=== PATIENT | male | born 1975 | race Caucasian/White ===

== ENCOUNTER 2018-03-06 04:27 | Emergency (ER) | payer SELFPAY ==
[~2018-03-06] VITALS: Ht 180.3 cm; Wt 117.9 kg
[2018-03-06 04:27] VITALS: BP 154/100
--- NOTE | 2018-03-06 04:51 | PHYS DOC ---
Past Medical History Past Medical History: Anxiety Past Surgical History: No Surgical History Alcohol Use: Occasionally Drug Use: None Adult General Chief Complaint Chief Complaint: ANKLE PROBLEM HPI HPI 42-year-old male presents with a 9 day history of left ankle pain and swelling. 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 Patient reports his been trying to stay off of his feet, wearing a [id number] ankle brace, and icing area without significant improvement of symptoms. Denies other injury. Denies numbness or tingling. Review of Systems Review of Systems Constitutional: Denies fever or chills [] HENT: Denies nasal congestion or sore throat [] Respiratory: Denies cough or shortness of breath [] Cardiovascular: Denies chest pain or palpitations GI: Denies abdominal pain, nausea, vomiting, or diarrhea [] : Denies dysuria or hematuria [] Musculoskeletal: Reports left ankle pain and swelling Integument: Denies rash. Reports swelling to left ankle Neurologic: Denies headache, focal weakness or sensory changes Complete systems were reviewed and found to be within normal limits, except as documented in this note. Allergies Allergies Allergies Coded Allergies Type Severity Reaction Last Updated Verified No Known Drug Allergies 10/28/14 No Physical Exam Physical Exam Constitutional: Well developed, well nourished, no acute distress, non-toxic appearance. [] HENT: Normocephalic, atraumatic, Eyes: conjunctiva normal, no discharge. [] Neck: Normal range of motion, supple, Cardiovascular: Left DP and PT pulses +2, Capillary refill < 2 secs. Skin: Warm, dry, Extremities: Left medial malleolar tenderness on palpation, Ankle drawer test negative. NO laxity noted, sensation intact. CR < 2 sec. Neurologic: Alert and oriented X 3, no focal deficits noted. [] Psychologic: Affect normal, judgement normal, mood normal. [] Current Patient Data Vital Signs Vital Signs Date Time Temp Pulse Resp B/P (MAP) Pulse Ox O2 Delivery O2 Flow Rate FiO2 03/06/18 04:27 98.3 94 20 154/100 (118) 98 Room Air 98.3 EKG EKG [] Radiology/Procedures Radiology/Procedures Left ankle 3 view x-ray (preliminary interpretation by ED physician): No acute fracture or dislocation Course & Med Decision Making Course & Med Decision Making Pertinent Labs and Imaging studies reviewed. (See chart for details) Patient presents with a 9 day history of left ankle pain. Pain primarily to medial malleolus and ligaments. Ice applied. X-ray obtained without acute fracture or dislocation. Vicente wrap and air splint applied. Crutches provided. Patient stable for discharge with outpatient follow-up with PCP/ orthopedics. Orthopedic referral provided. Discussed findings and plan with patient, who acknowledges understanding and agreement. Dragon Disclaimer Dragon Disclaimer This electronic medical record was generated, in whole or in part, using a voice recognition dictation system. Departure Departure Impression: Primary Impression: Left ankle sprain Disposition: HOME, SELF-CARE Condition: STABLE Referrals: NO PCP (PCP) JANES GONZALEZ II, MD Patient Instructions: Ankle Sprain, Crutch Use Additional Instructions: Use over the counter Tylenol and/or Ibuprofen for pain. Problem Qualifiers Primary Impression: Left ankle sprain Encounter type: initial encounter Involved ligament of ankle: unspecified ligament Qualified Codes: S93.402A - Sprain of unspecified ligament of left ankle, initial encounter DOUG RIOS DO Mar 06, 2018 04:51
--- NOTE | 2018-03-06 07:53 | RAD ---
Portable left ankle, 3 views, 03/06/2018: HISTORY: Injury, pain There are mild degenerative changes at the ankle joint. Bony irregularity at the tip of the medial malleolus appears old. There is a small exostosis arising from the medial aspect of the distal tibia. No acute fracture or dislocation is identified. There is moderate diffuse soft tissue swelling IMPRESSION: No acute bony abnormality is detected. Electronically signed by: Micheal Worthington MD (03/06/2018 7:49 AM) [facility]
== END 2018-03-06 05:09 | disposition home or self-care (01) ==
LOC: ER 04:27
DX: S93.402A Sprain of unspecified ligament of left ankle, initial encounter (principal); F41.9 Anxiety disorder, unspecified; W18.42XA Slipping, tripping and stumbling without falling due to stepping into hole or opening, initial encounter; Y93.89 Activity, other specified; Y99.9 Unspecified external cause status; Y92.89 Other specified places as the place of occurrence of the external cause
CPT/HCPCS: 73610; 99284

== ENCOUNTER 2019-04-14 23:25 | Emergency (ER) | payer SELFPAY ==
[~2019-04-14] VITALS: Ht 180.3 cm; Wt 104.3 kg
[2019-04-14 23:25] VITALS: BP 118/72
[2019-04-14 23:59] LABS: BILIRUBIN,URINE NEGATIVE (NEG); CLARITY,URINE CLEAR; COLOR,URINE YELLOW; NITRITE,URINE NEGATIVE (NEG); PROTEIN,URINE NEGATIVE (NEG-TRACE); UROBILINOGEN,URINE 0.2 mg/dL (0.2 mg/dL)
[2019-04-15] MEDS ORDERED: ZIPRASIDONE IM 20 MG VIAL. IM ONE
[2019-04-15 00:05] LABS: BARBITURATES NEG (NEG); BENZODIAZEPINES NEG (NEG); CANNABINOIDS NEG (NEG); COCAINE NEG (NEG); METHADONE NEG (NEG); OPIATES NEG (NEG); PHENCYCLIDINE NEG (NEG)
[2019-04-15 00:12] LABS: AMPHETAMINE/METHAMPHETAMINE NEG (NEG)
[2019-04-15 00:14] LABS: BACTERIA,URINE 0 /HPF (0-FEW); RBC,URINE 0 /HPF (0-2); WBC,URINE 0 /HPF (0-4)
[2019-04-15 00:27] LABS: BASO # 0.1 x10^3/uL (0.0-0.2); BASO % 1 % (0-3); EOS # 0.3 x10^3/uL (0.0-0.7); EOS % 4 % (0-3); HEMATOCRIT 46.9 % (39.0-53.0); HEMOGLOBIN 15.8 g/dL (13.0-17.5); LYMPH % 34 % (24-48); MEAN CORPUSCULAR HEMOGLOBIN 31 pg (25-35); MEAN CORPUSCULAR HGB CONC 34 g/dL (31-37); MEAN CORPUSCULAR VOLUME 91 fL (79-100); MONO # 1.1 x10^3/uL (0.0-1.1); MONO % 12 % (0-9); NEUT # 4.5 x10^3/uL (1.8-7.7); NEUT % 50 % (31-73); PLATELET COUNT 314 x10^3/uL (140-400); RED BLOOD COUNT 5.13 x10^6/uL (4.30-5.70); RED CELL DISTRIBUTION WIDTH 13.8 % (11.5-14.5)
[2019-04-15 00:36] LABS: CALCIUM 9.3 mg/dL (8.5-10.1); CREATININE 0.7 mg/dL (0.7-1.3); GFR 123.7; POTASSIUM 3.6 mmol/L (3.5-5.1)
[2019-04-15 00:42] LABS: ALBUMIN 3.5 g/dL (3.4-5.0); DIRECT BILIRUBIN 0.1 mg/dL (0.0-0.2); MAGNESIUM 2.1 mg/dL (1.8-2.4); TOTAL BILIRUBIN 0.2 mg/dL (0.2-1.0); TOTAL PROTEIN 7.3 g/dL (6.4-8.2)
--- NOTE | 2019-04-15 01:35 | PHYS DOC ---
Past Medical History Past Medical History: Anxiety (VELMA KO MD) Past Surgical History: No Surgical History (VELMA KO MD) Alcohol Use: Occasionally Drug Use: None (VELMA KO MD) Adult General Chief Complaint Chief Complaint: SUICDAL IDEATION HPI HPI Patient is a 43 year old male who presents via EMS with complaining of suicidal ideation. Patient called 911 and complaining of suicidal ideation without having get plan and asked for help. Patient afebrile to ER was agitated and refused to have evaluation and examined UA and blood tests. Patient refused to give history and was agitated and combative. (VELMA KO MD) Review of Systems Review of Systems Unable to obtain because of uncooperative patient (VELMA KO MD) Current Medications Current Medications Current Medications Medications (Trade) Dose Ordered Sig/Pratima Start Time Stop Time Status Last Admin Dose Admin Lorazepam (Ativan Inj) 2 mg 1X ONCE 04/15/19 01:00 04/15/19 01:01 DC 04/15/19 00:57 2 MG Lorazepam (Ativan) 1 mg 1X ONCE 04/15/19 08:00 04/15/19 08:01 DC 04/15/19 07:50 1 MG Ziprasidone (Geodon Im) 20 mg 1X ONCE 04/15/19 00:00 04/15/19 00:01 DC 04/15/19 00:13 20 MG (CARISSA ROGERS Jr. DO) Allergies Allergies Allergies Coded Allergies Type Severity Reaction Last Updated Verified No Known Drug Allergies 10/28/14 No (CARISSA ROGERS Jr., DO) Physical Exam Physical Exam Unable to evaluate the patient, uncooperative and agitated patient (VELMA KO MD) Current Patient Data Vital Signs Vital Signs Date Time Temp Pulse Resp B/P (MAP) Pulse Ox O2 Delivery O2 Flow Rate FiO2 04/14/19 23:25 92 18 118/72 (87) 98 Room Air (CARISSA ROGERS Jr., DO) Lab Values Laboratory Tests Test 04/14/19 00:45 04/15/19 00:15 04/15/19 07:10 Urine Collection Type Unknown Urine Color Yellow Urine Clarity Clear Urine pH 6.0 Urine Specific [place] <=1.005 Urine Protein Negative mg/dL (NEG-TRACE) Urine Glucose (UA) Negative mg/dL (NEG) Urine Ketones (Stick) Negative mg/dL (NEG) Urine Blood Negative (NEG) Urine Nitrite Negative (NEG) Urine Bilirubin Negative (NEG) Urine Urobilinogen Dipstick 0.2 mg/dL (0.2 mg/dL) Urine Leukocyte Esterase Negative (NEG) Urine RBC 0 /HPF (0-2) Urine WBC 0 /HPF (0-4) Urine Squamous Epithelial Cells None /LPF Urine Bacteria 0 /HPF (0-FEW) Urine Opiates Screen Neg (NEG) Urine Methadone Screen Neg (NEG) Urine Barbiturates Neg (NEG) Urine Phencyclidine Screen Neg (NEG) Urine Amphetamine/Methamphetamine Neg (NEG) Urine Benzodiazepines Screen Neg (NEG) Urine Cocaine Screen Neg (NEG) Urine Cannabinoids Screen Neg (NEG) Urine Ethyl Alcohol Pos (NEG) White Blood Count 9.0 x10^3/uL (4.0-11.0) Red Blood Count 5.13 x10^6/uL (4.30-5.70) Hemoglobin 15.8 g/dL (13.0-17.5) Hematocrit 46.9 % (39.0-53.0) Mean Corpuscular Volume 91 fL (79-100) Mean Corpuscular Hemoglobin 31 pg (25-35) Mean Corpuscular Hemoglobin Concent 34 g/dL (31-37) Red Cell Distribution Width 13.8 % (11.5-14.5) Platelet Count 314 x10^3/uL (140-400) Neutrophils (%) (Auto) 50 % (31-73) Lymphocytes (%) (Auto) 34 % (24-48) Monocytes (%) (Auto) 12 % (0-9) H Eosinophils (%) (Auto) 4 % (0-3) H Basophils (%) (Auto) 1 % (0-3) Neutrophils # (Auto) 4.5 x10^3/uL (1.8-7.7) Lymphocytes # (Auto) 3.0 x10^3/uL (1.0-4.8) Monocytes # (Auto) 1.1 x10^3/uL (0.0-1.1) Eosinophils # (Auto) 0.3 x10^3/uL (0.0-0.7) Basophils # (Auto) 0.1 x10^3/uL (0.0-0.2) Sodium Level 146 mmol/L (136-145) H Potassium Level 3.6 mmol/L (3.5-5.1) Chloride Level 110 mmol/L (98-107) H Carbon Dioxide Level 27 mmol/L (21-32) Anion Gap 9 (6-14) Blood Urea Nitrogen 11 mg/dL (8-26) Creatinine 0.7 mg/dL (0.7-1.3) Estimated GFR (Cockcroft-Gault) 123.7 Glucose Level 134 mg/dL (70-99) H Calcium Level 9.3 mg/dL (8.5-10.1) Magnesium Level 2.1 mg/dL (1.8-2.4) Total Bilirubin 0.2 mg/dL (0.2-1.0) Direct Bilirubin 0.1 mg/dL (0.0-0.2) Aspartate Amino Transferase (AST) 23 U/L (15-37) Alanine Aminotransferase (ALT) 43 U/L (16-63) Alkaline Phosphatase 87 U/L (46-116) Total Protein 7.3 g/dL (6.4-8.2) Albumin 3.5 g/dL (3.4-5.0) Ethyl Alcohol Level 273 mg/dL (0-10) H 191 mg/dL (0-10) H Laboratory Tests 04/15/19 00:15 Laboratory Tests 04/15/19 00:15 (CARISSA ROGERS Jr. DO) EKG EKG [] (VELMA KO MD) Radiology/Procedures Radiology/Procedures [] (VELMA KO MD) Course & Med Decision Making Course & Med Decision Making Pertinent Labs reviewed. (See chart for details) Evaluation of patient in ER showed 43-year-old male patient brought in by EMS because of suicidal ideation patient. Patient was agitated and refused to have labs and examination. Patient treated with 20 mg of Geodon IM without change of his condition and then had 2 mg of Ativan IM and then had 4 extremities restraint and finally was able to fall asleep. Patient had blood alcohol of more than 270s.PAT staff presented to ER but was not able to evaluate the patient. Plan to keep patient in ER for getting better with agitation and alcohol intoxication to able to evaluate for suicidal ideation in the morning. Sign out given to Dr. Rogers at 0600 for further evaluation and final disposition. Discussed current findings and plan with patient and family, who acknowledge understanding and agreement. (VELMA KO MD) Course & Med Decision Making Patient was seen and evaluated by [facility] from mental health and patient has been cleared from mental health standpoint for discharge home. Patient indicating that he is not having any suicidal thoughts at this time. (CARISSA ROGERS Jr. DO) Dragon Disclaimer Dragon Disclaimer This electronic medical record was generated, in whole or in part, using a voice recognition dictation system. (VELMA KO MD) Departure Departure Impression: Primary Impression: Suicidal ideation Additional Impressions: Alcohol intoxication Agitation Disposition: HOME, SELF-CARE Condition: STABLE Referrals: NO PCP (PCP) Patient Instructions: Alcohol Intoxication, Suicidal Feelings, How to Help Yourself Problem Qualifiers VELMA KO MD Apr 15, 2019 01:35 CARISSA ROGERS Jr., DO Apr 15, 2019 08:10
[2019-04-15] MEDS ORDERED: LORazepam 0.5 MG TABLET PO ONE (08:00)
== END 2019-04-15 08:07 | disposition home or self-care (01) ==
LOC: ER 23:25
DX: R45.851 Suicidal ideations (principal); F10.129 Alcohol abuse with intoxication, unspecified; R45.1 Restlessness and agitation; F41.9 Anxiety disorder, unspecified; Y90.8 Blood alcohol level of 240 mg/100 ml or more
CPT/HCPCS: 36415; 80048; 80076; 80307; 81001; 83735; 85025; 96372; 99284; G0480; J2060; J3486